=== PATIENT | male | born 1940 | race Caucasian/White ===

== ENCOUNTER 2020-08-01 17:32 | Emergency (ER) | payer MEDICARE, OTHER ==
--- NOTE | 2020-08-01 19:34 | EDM.PDOC ---
ED HPI GENERAL MEDICAL PROBLEM - General Chief Complaint: Eye Problems Stated Complaint: HAD EYE SURGERY, FALSE EYE KEEP FALLING OUT Time Seen by Provider: 08/01/20 17:34 Source of Information: Reports: Patient History Limitations: Reports: No Limitations - History of Present Illness INITIAL COMMENTS - FREE TEXT/NARRATIVE: HISTORY AND PHYSICAL: History of present illness: Patient is a 79-year-old male who presents emergency room today with concern of his eye prosthesis of his left eye continually falling out over the past 3 days. Patient states that 7 days ago on Monday, he had his eye removed secondary to a corneal ulcer that he was using antibiotics for that perforated requiring removal of the eye performed by Dr. Cunningham, ophthalmology in [facility]. Patient states he originally had a cataract surgery done by Dr. Ansari, ophthalmology here in [place], and had a postop infection complication that was not well controlled with antibiotics and ended up resulting in his eye having to be removed 7 days ago. Patient states that over the past 3 days, the prosthesis has fallen out and he has tried to "pop it back" a few times but it continues to fall out and he feels like the marble is too big for his eye socket. Patient states that he was seen at the emergency room in [place] earlier today and they told him that he needed to go somewhere with an opht halmologist. Patient states that he called Dr. Ansari and was instructed to come to the emergency room to get "his eyelid stitched shut to hold it in place ". Patient states he does have discomfort of the eye socket when the prosthesis is in place but otherwise does not has discomfort. Denies any other symptoms or concerns. Patient denies fever, chills, chest pain, shortness of breath, or cough. Denies headache, neck stiff ness, change in vision, syncope, or near syncope. Denies nausea, vomiting, abdominal pain, diarrhea, constipation, or dysuria. Has not noted any blood in urine or stool. Patient has been eating and drinking appropriately. Review of systems: As per history of present illness and below otherwise all systems reviewed and negative. Past medical history: As per history of present illness and as reviewed below otherwise noncontributory. Surgical history: As per history of present illness and as reviewed below otherwise noncontributory. Social history: See social history for further information Family history: As per history of present illness and as reviewed below otherwise noncontributory. Physical exam: General: Patient is alert, oriented, and in no acute distress. Patient sitting comfortably on exam table. Vitals stable and reviewed by me. HEENT: The orbital implant [place] as well as the ocular prosthesis is completely removed from the patient's left eye. Able to visualize the optic nerve entrance in the eye socket on the left. There is noted to be some purulent drainage on the orbital implant. Otherwise, atraumatic, normocephalic, pupils equal and reactive bilaterally, negative for conjunctival pallor or scleral icterus, mucous membranes moist, TMs normal bilaterally, throat clear, neck supple, nontender, trachea midline. No drooling or trismus noted. No meningeal signs. No hot potato voice noted. Lungs: Clear to auscultation, breath sounds equal bilaterally, chest nontender. Heart: S1S2, regular rate and rhythm without overt murmur Abdomen: Soft, nondistended, nontender. Negative for masses or hepatosplenomegaly. Negative for costovertebral tenderness. Pelvis: Stable nontender. Genitourinary: Deferred. Rectal: Deferred. Skin: Intact, warm, dry. No lesions or rashes noted. Extremities: Atraumatic, negative for cords or calf pain. Neurovascular unremarkable. Neuro: Awake, alert, oriented. Cranial nerves II through XII unremarkable. Cerebellum unremarkable. Motor and sensory unremarkable throughout. Exam nonfocal. Notes: Patient is a 79-year-old male presents to the ED today with concern of his eye prosthesis falling out of his left eye over the past 3 days after his eye was removed 7 days ago by an network relations consultant, Dr. Cunningham in [place]. Upon arrival to the ED, patient is vitally stable and well-appearing on exam. He does have an eye patch placed over the left eye which I removed on my exam. The ocular prosthesis and orbital implant of the left eye is out of the eye socket stuck to the tape from the eye patch which I then placed these in a cup. I am able to visualize the hole of the optic nerve where the implant would have been. There does appear to be a small amount of purulent drainage noted on the orbital implant. I did call and speak to the network relations consultant on-call, Dr. Ansari, and thoroughly discussed patient's case. He states that the orbital implant is not supposed to be removed or fall out and this is a surgical complication and recommends that I call and speak to the ophthalmology department where patient had his surgery. I did call and speak to the network relations consultant on-call for [facility] for the ophthalmology team, Dr. Seng Palm, as Dr. Cunningham who performed the surgery is not available at this time, and thoroughly discussed patient's case. According to the network relations consultant, this is a rare postoperative complication of removing the eye and states that it is likely due to infection of the eye orbit and to treat similar to a wound anywhere else on the body and encourages keeping the eye covered with sterile gauze and to do warm compresses every 3-4 hours. According to the network relations consultant, this is not an emergency but does require patient to be placed on Keflex with close follow up with Dr. Cunningham. He encourages patient to call his surgeon on Monday for close reevaluation and follow-up. Upon reevaluation of patient, he remains vitally stable and comfortable throughout stay in ED. Encourage patient to call his network relations consultant who did his surgery in [place],Dr. Cunningham on Monday for closer instruction and guidance for treatment. Signs and symptoms that were prompt return to the ED thoroughly discussed with patient. Voices understanding and is agreeable to plan of care. Denies any further questions or concerns at this time. Diagnostics: None Therapeutics: None Prescription: Keflex Impression: Complication of prosthetic eye, left Plan: 1. Take medication as prescribed. You can use Tylenol as directed for pain and discomfort. 2. Do not try to insert any of the prosthesis back into the eye as discussed. Use warm compresses every 3-4 hours as directed and as discussed. 3. Call Dr. Cunningham Monday as discussed. Return to the ED as needed and as discussed. Definitive disposition and diagnosis as appropriate pending reevaluation and review of above. Right eye Pain Score (Numeric/FACES): 4 - Related Data Allergies Allergy/AdvReac Type Severity Reaction Status Date / Time No Known Allergies Allergy Verified 08/01/20 18:09 Home Meds: Home Meds Aspirin 81 mg PO DAILY 08/01/20 [History] Cetirizine [ZyrTEC] 10 mg PO DAILY 08/01/20 [History] Docusate Sodium 2 tab PO DAILY 08/01/20 [History] Famotidine 20 mg PO DAILY 08/01/20 [History] LORazepam [Ativan] 0.5 mg PO ASDIRECTED PRN 08/01/20 [History] Levothyroxine 75 mcg PO DAILY 08/01/20 [History] Losartan [Cozaar] 25 mg PO DAILY 08/01/20 [History] Morphine 15 mg PO ASDIRECTED PRN 08/01/20 [History] Potassium Chloride 10 meq PO DAILY 08/01/20 [History] Tamsulosin HCl [Flomax] 0.4 mg PO DAILY 08/01/20 [History] cephALEXin [Keflex] 500 mg PO Q8H 14 Days #28 cap 08/01/20 [Rx] dexAMETHasone [Dexamethasone] 2 mg PO ACBREAKFAST 08/01/20 [History] hydrALAZINE [Apresoline] 25 mg PO TID 08/01/20 [History] Past Medical History HEENT History: Reports: Cataract, Other (See Below) Other HEENT History: wears glasses, has upper and lower permanent partial denture Cardiovascular History: Reports: Afib, High Cholesterol, Hypertension Gastrointestinal History: Reports: Colon Polyp Other Gastrointestinal History: sensitive to Gluten Genitourinary History: Reports: Prostate Disorder Other Genitourinary History: hx of Prostate cancer- metastised to hip and pel vis- had been taking radiation therapy and "shots" every 3 months Musculoskeletal History: Reports: Arthritis, Fracture Other Musculoskeletal History: hx of fx ankle Endocrine/Metabolic History: Reports: Hypothyroidism, Obesity/BMI 30+ Hematologic History: Reports: Anticoagulation Therapy Oncologic (Cancer) History: Reports: Prostate - Infectious Disease History Infectious Disease History: Reports: None - Past Surgical History HEENT Surgical History: Reports: Eye Surgery Other HEENT Surgeries/Procedures: Artificial right eye GI Surgical History: Reports: Colonoscopy Neurological Surgical History: Reports: Discectomy, Lumbar Spine Musculoskeletal Surgical History: Reports: Shoulder Surgery Other Musculoskeletal Surgeries/Procedures:: bilateral RTCR Social & Family History - Family History Family Medical History: No Pertinent Family History - Tobacco Use Tobacco Use Status *Q: Never Tobacco User - Caffeine Use Caffeine Use: Reports: None - Recreational Drug Use Recreational Drug Use: No ED ROS GENERAL - Review of Systems Review Of Systems: Comprehensive ROS is negative, except as noted in HPI. ED EXAM GENERAL W FULL EYE - Physical Exam Exam: See Below (see dictation) Course - Vital Signs Last Recorded V/S: Last Vital Signs Temp 96.5 F L 08/01/20 18:09 Pulse 70 08/01/20 18:09 Resp 17 08/01/20 18:09 BP 133/64 08/01/20 18:09 Pulse Ox 98 08/01/20 18:09 Departure - Departure Time of Disposition: 19:33 Disposition: Home, Self-Care 01 Clinical Impression: Complication of prosthetic eye Qualifiers: Encounter type: initial encounter Qualified Code(s): T85.9XXA - Unspecified complication of internal prosthetic device, implant and graft, initial encounter - Discharge Information Prescriptions: cephALEXin [Keflex] 500 mg PO Q8H 14 Days #28 cap Instructions: Wound Infection, [id number] Referrals: PCP,None [Primary Care Provider] - Forms: ED Department Discharge Additional Instructions: The following information is given to patients seen in the emergency department who are being discharged to home. This information is to outline your options for follow-up care. We provide all patients seen in our emergency department with a follow-up referral. The need for follow-up, as well as the timing and circumstances, are variable depending upon the specifics of your emergency department visit. If you don't have a primary care physician on staff, we will provide you with a referral. We always advise you to contact your personal physician following an emergency department visit to inform them of the circumstance of the visit and for follow-up with them and/or the need for any referrals to a consulting specialist. The emergency department will also refer you to a specialist when appropriate. This referral assures that you have the opportunity for follow-up care with a specialist. All of these measure are taken in an effort to provide you with optimal care, which includes your follow-up. Under all circumstances we always encourage you to contact your private physician who remains a resource for coordinating your care. When calling for follow-up care, please make the office aware that this follow-up is from your re cent emergency room visit. If for any reason you are refused follow-up, please contact the [facility] at and asked to speak to the emergency department charge nurse. [facility] [address] [place] [id number] [facility] [address] [place] [id number] 1. Take medication as prescribed. You can use Tylenol as directed for pain and discomfort. 2. Do not try to insert any of the prosthesis back into the eye as discussed. Use warm compresses every 3-4 hours as directed and as discussed. 3. Call Dr. Cunningham Monday as discussed. Return to the ED as needed and as discussed. Sepsis Event Note (ED) - Evaluation Sepsis Screening Result: No Definite Risk
== END 2020-08-01 19:53 | disposition home or self-care (01) ==
LOC: MW.ED 17:32
DX: T85.9XXA Unspecified complication of internal prosthetic device, implant and graft, initial encounter (principal); I48.91 Unspecified atrial fibrillation; I10 Essential (primary) hypertension; E03.9 Hypothyroidism, unspecified; E66.9 Obesity, unspecified; M19.90 Unspecified osteoarthritis, unspecified site; Z68.26 Body mass index [BMI] 26.0-26.9, adult; Z79.82 Long term (current) use of aspirin; Z79.899 Other long term (current) drug therapy
CPT/HCPCS: 99283